=== PATIENT | female | born 1960 | race African-American/Black ===

== ENCOUNTER 2019-12-28 14:25 | Emergency (ER) | payer OTHER, SELFPAY ==
--- NOTE | ~2019-12-28 | XR_ITS ---
EXAMINATION: XR lumbar spine 2-3V DATE: 12/28/2019 17:47 INDICATION: Low back pain. TECHNIQUE: 3 views of lumbar spine were obtained. COMPARISON: None. FINDINGS: There is 3 degrees levocurvature of thoracolumbar spine. Vertebral body heights and interve rtebral disc heights are normal. There are endplate osteophytes at L3-L4. There are likely L5 pars de fects. There is moderate facet joint osteoarthritis in lower lumbar spine. IMPRESSION: 1. L5 pars defects. 2. Mild lumbar spondylosis. Reviewed, dictated and finalized at location A.
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
[2019-12-28 15:41] VITALS: BP 189/105; PULSE 97; RESP 18; TEMP 36.4; O2SAT 100
[2019-12-28] MEDS: traMADol HCL 50 MG TABLET PO (17:21)
--- NOTE | 2019-12-28 17:27 | PC.NURSE ---
Patient to radiology at this time.
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
[2019-12-28 18:53] VITALS: BP 145/86; PULSE 89; RESP 18; O2SAT 100
== END 2019-12-28 18:54 | disposition home or self-care (01) ==
PROVIDERS: Emergency Provider Emergency Medicine; PCP Internal Medicine Infectious Disease
DX: S39.012A Strain of muscle, fascia and tendon of lower back, initial encounter (principal); S16.1XXA Strain of muscle, fascia and tendon at neck level, initial encounter; T14.8XXA Other injury of unspecified body region, initial encounter; V43.52XA Car driver injured in collision with other type car in traffic accident, initial encounter
CPT/HCPCS: 72100; 73562; 73590; 99284; A9270